=== PATIENT | male | born 1985 | race Caucasian/White ===

== ENCOUNTER 2024-11-11 05:44 | Emergency (ER) | payer OTHER ==
[~2024-11-11] VITALS: Ht 160 cm; Wt 103.9 kg
[2024-11-11] MEDS ORDERED: SERTRALINE HCL100 MG PO (05:54)
[2024-11-11] MEDS ORDERED: PANTOPRAZOLE SO40 MG PO (05:54)
[2024-11-11] MEDS ORDERED: ATIVAN0.5 MG PO (05:54)
[2024-11-11] MEDS ORDERED: LISINOPRIL20 MG PO (05:54)
[2024-11-11] MEDS ORDERED: ROSUVASTATIN CA20 MG PO (05:54)
[2024-11-11] MEDS ORDERED: LORazepam 2 MG/ML VIAL IV ONE ×2 (06:00→06:15)
[2024-11-11] MEDS ORDERED: ASPIRIN 81 MG CHEW PO ONE (06:00)
[2024-11-11] MEDS ORDERED: LACTATED RINGER'S 1,000 ML IV ONE (06:00)
[2024-11-11 06:06] LABS: BASOPHILS 0.5 % (0-2); EOSINOPHILS 2.1 % (0-6); HEMATOCRIT 42.7 % (35.0-50.0); LYMPHOCYTES 31.6 % (24-44); MCV 79.9 fl (81-99); NEUTROPHILS 60.8 % (39-80); PLATELET COUNT 168 K/uL (140-440); RBC 5.35 M/ul (4.3-5.7); RDW 13.7 (10.5-15.0)
[2024-11-11] MEDS ORDERED: ondansetron HCL 4 MG/2 ML VIAL IV ONE (06:15)
[2024-11-11 06:24] LABS: ALBUMIN 4.3 g/dL (3.4-5.0); ALBUMIN/GLOBULIN RATIO 1.26 (1.1-2.4); BILIRUBIN, TOTAL 0.4 ng/dL (0.2-1.0); BUN/CREATININE RATIO 13.86 (6.0-28.6); CALCIUM 9.3 mg/dL (8.5-10.1); CREATININE, SERUM 1.01 mg/dL (0.70-1.30); PROTEIN, TOTAL 7.7 g/dL (6.4-8.2)
[2024-11-11] MEDS ORDERED: METOPROLOL TARTRATE 5 MG/5 ML VIAL IV ONE (06:45)
[2024-11-11 07:12] LABS: BILIRUBIN, URINE NEGATIVE (negative); BLOOD/HGB, URINE NEGATIVE (Negative); KETONE, URINE NEGATIVE (Negative); LEUK ESTERASE, URINE NEGATIVE (negative); NITRITE, URINE NEGATIVE (negative)
[2024-11-11 08:33] LABS: AMPHETAMINES, URINE NEGATIVE (NEGATIVE); BARBITURATES, URINE NEGATIVE (NEGATIVE); BENZODIAZEPINE, URINE NEGATIVE (NEGATIVE); BUPRENORPHINE, URINE NEGATIVE (NEGATIVE); CANNABINOID, URINE NEGATIVE (NEGATIVE); COCAINE, URINE NEGATIVE (NEGATIVE); ECSTASY, URINE NEGATIVE (NEGATIVE); FENTANYL, URINE NEGATIVE (NEGATIVE); METHADONE, URINE NEGATIVE (NEGATIVE); OPIATES, URINE NEGATIVE (NEGATIVE); OXYCODONE, URINE NEGATIVE (NEGATIVE); PHENCYCLIDINE, URINE NEGATIVE (NEGATIVE)
[2024-11-11 09:25] VITALS: BP 160/73
--- NOTE | 2024-11-11 21:15 | EKG ---
[facility] [address] [facility] [facility] [place], [place] [address] Signed Sinus tachycardia Otherwise normal ECG No previous ECGs available Confirmed by Humaira Spencer DO ([id number]) on 11/11/2024 9:15:37 PM Electronically Signed By: HUMAIRA SPENCER DO 11/[id number] PATIENT NAME: LICHA PLASENCIA Electrocardiogram DATE OF : 89 PHYSICIAN: HUMAIRA SPENCER DO REPORT #: [id number] REPORT IS CONFIDENTIAL AND NOT TO BE RELEASED WITHOUT AUTHORIZATION
== END 2024-11-11 09:25 | disposition home or self-care (01) ==
LOC: ED 05:44
PROVIDERS: Internal Medicine
DX: F41.1 Generalized anxiety disorder (principal); R00.0 Tachycardia, unspecified; I10 Essential (primary) hypertension; Z79.899 Other long term (current) drug therapy
CPT/HCPCS: 36415; 71045; 80053; 80307; 81003; 83036; 83735; 84443; 84484; 85025; 93005; 93010; 96374; 96375; 99285-25; A9270; J2060; J7121